=== PATIENT | male | born 1980 | race American Indian/Alaskan Native ===

== ENCOUNTER 2018-10-05 09:21 | Emergency (ER) | payer OTHER, MEDICAID ==
[2018-10-05 09:28] VITALS: RESP 18
[2018-10-05] MEDS ORDERED: Tdap Vaccine 0.5 ml Vial (10-64 yrs) IM ONE ×2 (09:42→10:08)
[2018-10-05] MEDS ORDERED: Amoxicillin-Clav 875-125 mg Tab PO STA (09:44)
--- NOTE | 2018-10-05 09:53 | C.PDOC ---
History Of Present Illness 38 y/o male pt presents to the ER complaining of swelling of the right hand. Pt reports he was working yesterday when a thorn punctured the dorsal aspect of his right hand. Pt is also hypertensive and states he refuses to take his HTN medication because it is "too strong". Pt denies weakness, change in hand sensation, fever and chills. Time Seen by Provider: 10/05/18 09:32 Chief Complaint (Nursing): Abnormal Skin Integrity History Per: Patient History/Exam Limitations: no limitations Onset/Duration Of Symptoms: Days (x2 ) Current Symptoms Are (Timing): Still Present Location Of Injury: Right: Hand Quality Of Symptoms: Swollen (mild) Past Medical History Reviewed: Historical Data, Nursing Documentation, Vital Signs Vital Signs: Last Vital Signs Temp 98.1 F 10/05/18 09:25 Pulse 103 H 10/05/18 09:25 Resp 18 10/05/18 09:25 BP 213/136 H 10/05/18 09:25 Pulse Ox 99 10/05/18 09:25 - Medical History PMH: HTN Family History: States: No Known Family Hx - Social History Hx Alcohol Use: Yes Hx Substance Use: No - Immunization History Hx Tetanus Toxoid Vaccination: No Hx Influenza Vaccination: No Hx Pneumococcal Vaccination: No Review Of Systems Except As Marked, All Systems Reviewed And Found Negative. Constitutional: Negative for: Fever, Chills Skin: Positive for: Other (right hand puncture wound ) Neurological: Negative for: Weakness, Numbness, Other (change in hand sensation ) Physical Exam - Physical Exam Appears: Non-toxic, No Acute Distress Skin: Normal Color, Warm, Dry Head: Normacephalic Eye(s): bilateral: Normal Inspection, EOMI Cardiovascular: Rhythm Regular Respiratory: Normal Breath Sounds Extremity: Normal ROM (FROM ), Tenderness (to dorsal aspect of right hand; minimal erythema ), Capillary Refill (<2 sec), Swelling (minima swelling on the dorsal aspect of the right hand ) Pulses: Right Radial: Normal Neurological/Psych: Oriented x3, Normal Speech, Normal Cognition ED Course And Treatment O2 Sat by Pulse Oximetry: 99 (RA) Pulse Ox Interpretation: Normal - Other Rad hand X-Ray: Read By Radiologist Interpretation: Accession No. : [id number]. Patient Name / ID : AMERICO PUENTES / [id number]. Exam Date : 10/05/2018 09:49:52 ( Approved ). Study Comment : Sex / Age : M / 38Y. Creator : Delgado Douglass MD. Dictator : Delgado Douglass MD. Donor Floor Technician : Auth Specialist : Delgado Douglass MD. Approver2 : Report Date : 10/05/2018 11:26:30. My Comment : . PROCEDURE: Right Hand Radiographs. HISTORY: swelling. COMPARISON: None. FINDINGS: BONES: Normal. No fracture. JOINTS: Normal. No osteoarthritic changes. SOFT TISSUES: Normal. OTHER FINDINGS: None. IMPRESSION: Normal right hand radiographs. Progress Note: Patient reports he is non-complient with B/P meds. Treated with augmentin and norvasc. On re-evaluation patient instructed to follow up with Dr Dacosta for further evaluation of B/P Reassessment Condition: Improved Medical Decision Making Medical Decision Making: Impression: puncture wound of the dorsal aspect of right hand Plans: -- tetanus shot -- amoxicillin -- Right hand XR Psatient has tenderness and swelling to dorsal aspect of right hand Advised to return if any increase symptoms Disposition Counseled Patient/Family Regarding: Studies Performed, Diagnosis, Need For Followup, Rx Given - Disposition Referrals: Karma Dacosta MD [Staff Provider] - Disposition: HOME/ ROUTINE Disposition Time: 12:00 Condition: STABLE Additional Instructions: Follow up with Dr Dacosta for evaluation of B/P Prescriptions: amLODIPine [Norvasc] 10 mg PO DAILY #15 tab Amoxicillin/Clavulanate [Augmentin 875 MG-125 MG] 1 tab PO BID #14 tab Instructions: Wound Care (DC), Cellulitis (Skin Infection), Adult (DC) Forms: [employer] (Ukrainian) - POA Present On Arrival: None - Clinical Impression Clinical Impression: Cellulitis, Hypertension - PA / ESE TEACHER / Resident Statement MD/DO has reviewed & agrees with the documentation as recorded. - Scribe Statement The provider has reviewed the documentation as recorded by the Scribe Stoll Do All medical record entries made by the Scribe were at my direction and personally dictated by me. I have reviewed the chart and agree that the record accurately reflects my personal performance of the history, physical exam, medical decision making, and the department course for this patient. I have also personally directed, reviewed, and agree with the discharge instructions and disposition.
[2018-10-05] MEDS ORDERED: Amoxicillin-Clav 875-125 mg Tab PO ONE (10:08)
--- NOTE | 2018-10-05 11:30 | RAD ---
PROCEDURE: Right Hand Radiographs. HISTORY: swelling COMPARISON: None. FINDINGS: BONES: Normal. No fracture. JOINTS: Normal. No osteoarthritic changes. SOFT TISSUES: Normal. OTHER FINDINGS: None. IMPRESSION: Normal right hand radiographs.
[2018-10-05 11:38] VITALS: BP 200/128; PULSE 95; TEMP 98.9
[2018-10-05 11:45] VITALS: O2SAT 99
== END 2018-10-05 11:51 | disposition home or self-care (01) ==
LOC: C.ER 09:21
DX: L03.113 Cellulitis of right upper limb (principal); I10 Essential (primary) hypertension; Z23 Encounter for immunization